=== PATIENT | male | born 1945 | race Caucasian/White ===

== ENCOUNTER 2020-08-21 06:44 | Inpatient (IN) | payer MEDICARE ==
[2020-08-21 07:32] LABS: #Monocytes 1.1 10x3/uL (0.0-1.1); #Neutrophils 10.4 10x3/uL (1.5-8.4); %Basophils 0.2 % (0.0-2.0); %Eosinophils 0.3 % (0.0-6.0); %Lymphocytes 4.7 % (18.0-47.0); %Neutrophils 85.6 % (40.0-75.0); Hemoglobin 14.1 g/dL (13.5-17.5); Mean Corpuscular HGB CONC 33.3 g/dL (32.0-36.0); Mean Corpuscular Hemoglobin 30.1 pg (27.0-33.0); Mean Corpuscular Volume 90.4 fl (81.2-95.1); Mean Platelet Volume 9.2 fl (7.4-10.4); Platelet Count 205 10x3/uL (150-450); RBC Distribution Width 12.6 % (11.5-14.5); Red Blood Cell (RBC) Count 4.68 10x6/uL (4.32-5.72); White Blood Cell (WBC) Count 12.2 10x3/uL (3.5-10.5)
[2020-08-21 07:49] LABS: ALT (SGPT) 19 U/L (8-55); AST (SGOT) 54 U/L (5-34); Albumin 4.1 g/dL (3.4-4.8); Alkaline Phosphatase 78 U/L (40-110); Anion Gap 18 mmol/L (10-20); BUN (Urea Nitrogen) 19 mg/dL (8.4-25.7); Bilirubin, Total 2.4 mg/dL (0.2-1.2); Calc. Creatinine Clearance 0 mL/min (70-130); Calcium 9.6 mg/dL (7.8-10.44); Carbon Dioxide 23 mmol/L (23-31); Chloride 105 mmol/L (98-107); Globulin 2.9 g/dL (2.4-3.5); Glucose 121 mg/dL (83-110); Lipase 8 U/L (8-78); Magnesium 1.9 mg/dL (1.6-2.6); Potassium 3.7 mmol/L (3.5-5.1); Sodium 142 mmol/L (136-145)
[2020-08-21 08:22] LABS: Bilirubin Neg (Negative); Blood, Urine 50 (Negative); Clarity Clear (Clear); Glucose, Urine (Dipstick) Normal (Negative); Ketone, Urine 15 mg/dL (Negative); Leukocyte 25 (Negative); Nitrite Negative (Negative); Protein, Urine (Dipstick) 15 mg/dl (Neg-Trace)
[2020-08-21 08:35] LABS: Bacteria/HPF None Seen HPF (None Seen); Mucous/LPF 2+ LPF (<2+); Renal Epithelial 0-3 HPF (None Seen); Squamous Epithelial 0-3 HPF (0-3); WBC/HPF 0-3 HPF (0-3)
[2020-08-21] MEDS ORDERED: Ondansetron PF 4 MG/2 ML Vial ONE (10:40)
[2020-08-21 11:34] VITALS: BMI 32.1
[2020-08-21] MEDS ORDERED: Acetaminophen 325 MG TAB PO PRN (11:42)
[2020-08-21] MEDS ORDERED: Acetaminophen 650 MG Suppository PR PRN (11:42)
[2020-08-21 15:43] LABS: Lactic Acid 0.9 mmol/L (0.5-2.2)
[2020-08-21] MEDS ORDERED: cefTRIAXone\\ROCEPHIN 1 GM in Sodium Chloride 0.9% 100 ML IVPB SCH (16:00)
[2020-08-21] MEDS ORDERED: Ondansetron ODT 4 MG TAB PO PRN (16:30)
[2020-08-21] MEDS ORDERED: Ondansetron PF 4 MG/2 ML Vial IVP PRN (16:30)
[2020-08-22 02:13] LABS: SARS-CoV-2 PCR by NAA Not Detected (NotDetected)
[2020-08-22 05:19] LABS: #Eosinphils 0.3 10x3/uL (0.0-0.5); #Monocytes 0.7 10x3/uL (0.0-1.1); #Neutrophils 5.4 10x3/uL (1.5-8.4); %Basophils 0.5 % (0.0-2.0); %Eosinophils 3.3 % (0.0-6.0); %Neutrophils 67.9 % (40.0-75.0); Mean Corpuscular HGB CONC 33.4 g/dL (32.0-36.0); Mean Corpuscular Hemoglobin 29.8 pg (27.0-33.0); Mean Corpuscular Volume 89.2 fl (81.2-95.1); Platelet Count 206 10x3/uL (150-450); RBC Distribution Width 12.8 % (11.5-14.5); Red Blood Cell (RBC) Count 4.36 10x6/uL (4.32-5.72); White Blood Cell (WBC) Count 7.9 10x3/uL (3.5-10.5)
[2020-08-22 05:47] LABS: Anion Gap 13 mmol/L (10-20); BUN (Urea Nitrogen) 16 mg/dL (8.4-25.7); Calc. Creatinine Clearance 110 mL/min (70-130); Calcium 8.8 mg/dL (7.8-10.44); Carbon Dioxide 24 mmol/L (23-31); Chloride 107 mmol/L (98-107); Glucose 145 mg/dL (83-110); Potassium 3.6 mmol/L (3.5-5.1); Sodium 140 mmol/L (136-145)
[2020-08-22] MEDS ORDERED: Lorazepam 0.5 MG TAB PO PRN (08:01)
[2020-08-22] MEDS ORDERED: Meclizine HCl 25 MG TAB PO PRN (08:01)
[2020-08-22] MEDS ORDERED: Meclizine HCl 12.5 MG TAB PO PRN (08:45)
[2020-08-22] MEDS: Losartan Potassium 50 MG TAB PO SCH (09:16)
[2020-08-22] MEDS: Tamsulosin HCl 0.4 MG CAP PO SCH (09:16)
[2020-08-22] MEDS: traZODone HCl 50 MG TAB PO SCH (09:16)
[2020-08-22] MEDS: risperiDONE 1 MG TAB PO SCH ×2 (09:16→20:55)
[2020-08-22] MEDS: Amlodipine 5 MG TAB PO SCH (09:16)
[2020-08-22] MEDS: Trihexyphenidyl 2 MG TAB PO SCH ×2 (09:16→21:02)
[2020-08-22] MEDS: Carbidopa/Levodopa CR 50-200 mg Tablet PO SCH ×2 (14:42→20:55)
[2020-08-22] MEDS ORDERED: VANCOMYCIN 1.75 GM/350 ML BAG 1.75 GM in Premix Bag 1 BAG IVPB SCH (20:00)
[2020-08-23] MEDS: Amlodipine 5 MG TAB PO SCH (08:55)
[2020-08-23] MEDS: Carbidopa/Levodopa CR 50-200 mg Tablet PO SCH ×3 (08:55→21:31)
[2020-08-23] MEDS: Trihexyphenidyl 2 MG TAB PO SCH ×2 (08:56→21:31)
[2020-08-23] MEDS: Losartan Potassium 50 MG TAB PO SCH (08:56)
[2020-08-23] MEDS: risperiDONE 1 MG TAB PO SCH ×2 (08:56→21:31)
[2020-08-23] MEDS: Tamsulosin HCl 0.4 MG CAP PO SCH (08:56)
[2020-08-23] MEDS: Vancomycin 1.5 GRAM/300 ML BAG 1.5 GM in Premix Bag 1 BAG IVPB SCH ×2 (08:56→21:30)
[2020-08-23] MEDS: traZODone HCl 50 MG TAB PO SCH (10:03)
[2020-08-24 07:46] LABS: Vancomycin, Trough 15.5 ug/mL
[2020-08-24] MEDS ORDERED: Vancomycin 1.5 GRAM/300 ML BAG ONE (08:03)
[2020-08-24] MEDS: Losartan Potassium 50 MG TAB PO SCH (08:26)
[2020-08-24] MEDS: Vancomycin 1.5 GRAM/300 ML BAG 1.5 GM in Premix Bag 1 BAG IVPB SCH (08:26)
[2020-08-24] MEDS: risperiDONE 1 MG TAB PO SCH (08:26)
[2020-08-24] MEDS: Trihexyphenidyl 2 MG TAB PO SCH (08:27)
[2020-08-24] MEDS: traZODone HCl 50 MG TAB PO SCH (08:27)
[2020-08-24] MEDS: Tamsulosin HCl 0.4 MG CAP PO SCH (08:27)
[2020-08-24] MEDS: Amlodipine 5 MG TAB PO SCH (08:27)
[2020-08-24] MEDS: Carbidopa/Levodopa CR 50-200 mg Tablet PO SCH ×2 (08:27→15:50)
[2020-08-24 15:42] VITALS: BP 144/80; TEMP 97.9
== END 2020-08-24 16:16 | DRG 57 ==
LOC: CSHERS 06:44 → CSHTELE 09:11 → INTOOBSV 10:52 → UNDOADMOB 10:52 → OBSVTOIN 10:53 → INTOOBSV 10:53
PROVIDERS: ADMIT Internal Medicine; ATTEND Internal Medicine
DX: G20 Parkinson's disease (principal); F02.81 Dementia in other diseases classified elsewhere, unspecified severity, with behavioral disturbance; Z20.822 Contact with and (suspected) exposure to COVID-19; Z66 Do not resuscitate; E78.5 Hyperlipidemia, unspecified; I10 Essential (primary) hypertension; Z91.81 History of falling; Z98.49 Cataract extraction status, unspecified eye; N40.0 Benign prostatic hyperplasia without lower urinary tract symptoms; W06.XXXA Fall from bed, initial encounter; R62.7 Adult failure to thrive; D72.829 Elevated white blood cell count, unspecified; R30.0 Dysuria; S00.212A Abrasion of left eyelid and periocular area, initial encounter
CPT/HCPCS: 36415; 51701; 70450; 71045; 72125; 80048; 80053; 80202; 81003; 81015; 83605; 83690; 83735; 84484; 85025; 87040; 87086; 87149; 87635; 93005; 94760; J0696; J2405; J3370; J3490; U0003; U0005

== ENCOUNTER 2020-12-16 13:45 | Emergency (ER) | payer MEDICARE ==
[2020-12-16 14:28] LABS: #Eosinphils 0.3 10x3/uL (0.0-0.5); #Monocytes 0.8 10x3/uL (0.0-1.1); #Neutrophils 4.3 10x3/uL (1.5-8.4); %Basophils 0.3 % (0.0-2.0); %Eosinophils 3.7 % (0.0-6.0); %Lymphocytes 20.5 % (18.0-47.0); %Monocytes 11.4 % (0.0-10.0); %Neutrophils 63.8 % (40.0-75.0); Mean Corpuscular HGB CONC 32.7 g/dL (32.0-36.0); Mean Corpuscular Hemoglobin 31.1 pg (27.0-33.0); Mean Corpuscular Volume 95.2 fl (81.2-95.1); Mean Platelet Volume 9.6 fl (7.4-10.4); Platelet Count 180 10x3/uL (150-450); Red Blood Cell (RBC) Count 4.18 10x6/uL (4.32-5.72); White Blood Cell (WBC) Count 6.7 10x3/uL (3.5-10.5)
[2020-12-16 14:40] LABS: ALT (SGPT) 31 U/L (8-55); AST (SGOT) 26 U/L (5-34); Albumin 3.7 g/dL (3.4-4.8); Alkaline Phosphatase 91 U/L (40-110); Anion Gap 13 mmol/L (10-20); BUN (Urea Nitrogen) 28 mg/dL (8.4-25.7); Bilirubin, Total 0.8 mg/dL (0.2-1.2); Calc. Creatinine Clearance 0 mL/min (70-130); Calcium 9.6 mg/dL (7.8-10.44); Carbon Dioxide 25 mmol/L (23-31); Chloride 106 mmol/L (98-107); Globulin 2.7 g/dL (2.4-3.5); Glucose 112 mg/dL (83-110); Potassium 4.2 mmol/L (3.5-5.1); Protein, Total 6.4 g/dL (5.8-8.1); Sodium 140 mmol/L (136-145)
[2020-12-16] MEDS ORDERED: Lorazepam 2 MG/ML VIAL ONE ×2 (15:35→15:37)
[2020-12-16 16:24] LABS: Bilirubin Neg (Negative); Blood, Urine 25 (Negative); Clarity Clear (Clear); Glucose, Urine (Dipstick) Normal (Negative); Ketone, Urine Negative (Negative); Leukocyte Negative (Negative); Nitrite Negative (Negative); Protein, Urine (Dipstick) Negative (Neg-Trace); Urobilinogen Normal mg/dL (Less than 2)
[2020-12-16 16:32] LABS: Bacteria/HPF 1+ HPF (None Seen); RBC/HPF 0-3 HPF (0-3); Squamous Epithelial None Seen HPF (0-3); WBC/HPF 0-3 HPF (0-3)
== END 2020-12-16 17:05 | disposition home or self-care (01) ==
LOC: CSHERS 13:45
DX: G20 Parkinson's disease (principal); F02.81 Dementia in other diseases classified elsewhere, unspecified severity, with behavioral disturbance; E78.5 Hyperlipidemia, unspecified
CPT/HCPCS: 36415; 51701; 70450; 80053; 81003; 81015; 83880; 84484; 85025; 87086; 96372; J2060